=== PATIENT | female | born 1960 | race Caucasian/White ===

== ENCOUNTER 2024-02-28 14:05 | Outpatient (CLI) | payer MEDICARE, SELFPAY ==
--- NOTE | ~2024-02-28 | MR_ITS ---
MRI of the left knee Clinical history: Effusion Technique: Coronal proton density and proton density-weighted images, sagittal proton-density and T2 fat-sat images, and axial proton-density fat-saturated images were acquired. Findings: Anterior and posterior cruciate ligaments are intact. Medial collateral ligament and the la teral collateral ligament complex are intact. Popliteus tendon is intact. There is focal vertical tear of the posterior horn of the medial meniscus. No lateral meniscal tear e vident. Articular cartilage is mild thickening along the femoral trochlea and in the medial lateral joint joel es. Probable focal cortical desmoid at the posterolateral femoral condyle. Extensor mechanism is intact. Minimal joint effusion and minimal Rahman's cyst are present. Impression: Vertical tear posterior horn medial meniscus. 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 This is a benign lesion. Reviewed, dictated and finalized at [facility]. Impression: Vertical tear posterior horn medial meniscus. 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 This is a b enign lesion.
== END 2024-02-28 14:06 ==
PROVIDERS: PCP Orthopaedic Surgery; Visit Provider Internal Medicine
DX: M25.462 Effusion, left knee (principal); S83.242A Other tear of medial meniscus, current injury, left knee, initial encounter
CPT/HCPCS: 73721

== ENCOUNTER 2024-05-21 14:15 | Outpatient (CLI) | payer MEDICARE, SELFPAY ==
--- NOTE | ~2024-05-21 | CT_ITS ---
EXAMINATION: CT abdomen wo/w con DATE: 05/21/2024 15:22 INDICATION: Hemangioma of liver. TECHNIQUE: Computed tomography (CT) of the abdomen was performed without and with 100 mL Omnipaque 35 0 intravenous contrast. Automated exposure control and iterative reconstruction technique were employ ed. The dose-length product was 1069.42 mGy-cm. COMPARISON: None. FINDINGS: The visualized portions of the lung bases demonstrate mild atelectasis. Calcified right nia g nodules are consistent with old granulomatous disease. No pleural effusion. The heart size is mathew l. No pericardial effusion. There is a small sliding hiatal hernia. There is a 2.4 cm mass with inter rupted peripheral puddling of contrast in right hepatic lobe, consistent with a hemangioma. There is a 2.0 cm mass with interrupted peripheral puddling of contrast in left hepatic lobe, consistent with a hemangioma. Calcifications in the liver and spleen are consistent with old granulomatous disease. T here are changes of cholecystectomy. The pancreas, adrenal glands, and kidneys are normal. There are no dilated loops of bowel. There is diverticulosis of the colon without evidence of diverticulitis. T here is moderate thoracic spondylosis and mild lumbar spondylosis. IMPRESSION: 1. Benign hemangiomas in the liver. Reviewed, dictated and finalized at location [facility].
[2024-05-21 15:16] LABS: Estimated Glomerular Filt Rate > 60
== END 2024-05-21 14:16 | disposition home or self-care (01) ==
LOC: ANHIMG 14:25
PROVIDERS: PCP Internal Medicine; Visit Provider Internal Medicine
DX: D18.03 Hemangioma of intra-abdominal structures (principal)
CPT/HCPCS: 74170; Q9967